=== PATIENT | female | born 1970 ===

== ENCOUNTER → 2023-04-14 | Outpatient (CLI) | payer BC ==
[2023-04-14 12:32] LABS: Alanine Aminotransferase 31 U/L (7-40); Albumin 4.4 g/dL (3.2-4.8); Alkaline Phosphatase 55 U/L (46-116); Anion Gap 4.8 (5-15); Aspartate Aminotransferase 21 U/L (13-40); BUN/Creatinine Ratio 21.1 (10.0-20.0); Blood Urea Nitrogen 16 mg/dL (9-23); Calcium 8.7 mg/dL (8.5-10.1); Carbon Dioxide 26.2 mmol/L (20-30); Chloride 103 mmol/L (98-107); Glucose 203 mg/dL (74-106); LDL Cholesterol 92 mg/dL (< 100); Potassium 4.4 mmol/L (3.5-5.1); Sodium 134 mmol/L (136-145); Triglycerides 212 mg/dL (< 150)
[2023-04-14 12:33] LABS: Bilirubin, Total 0.5 mg/dL (0.2-1.0); Cholesterol 141 mg/dL (< 200); Creatine Kinase IFCC 167 U/L (34-145); HDL Cholesterol 33 mg/dL (40-59); Total Protein 6.9 g/dL (5.7-8.2)
[2023-04-15 08:06] LABS: Estradiol 92.5 pg/mL (.); Thyroxine (T4) 6.1 ug/dL (4.5-12.0)
== END | disposition home or self-care (01) ==
LOC: LAB 11:34
PROVIDERS: ATTEND Internal Medicine
DX: E10.65 Type 1 diabetes mellitus with hyperglycemia (principal); E78.5 Hyperlipidemia, unspecified; N95.9 Unspecified menopausal and perimenopausal disorder; E55.9 Vitamin D deficiency, unspecified; N95.1 Menopausal and female climacteric states; Z79.891 Long term (current) use of opiate analgesic
CPT/HCPCS: 36415; 80053; 80061; 82043; 82306; 82550; 82670; 83036; 84402; 84403; 84436; 84443

== ENCOUNTER → 2024-08-26 | Outpatient (CLI) | payer BC ==
[2024-08-26 10:25] LABS: Urine Bacteria None Seen /hpf (None Seen)
[2024-08-26 11:59] LABS: Alanine Aminotransferase 27 U/L (7-40); Albumin 4.8 g/dL (3.2-4.8); Alkaline Phosphatase 54 U/L (46-116); Anion Gap 6 (5-15); Aspartate Aminotransferase 30 U/L (13-40); BUN/Creatinine Ratio 14.8 (10.0-20.0); Blood Urea Nitrogen 13 mg/dL (9-23); Calcium 9.8 mg/dL (8.7-10.4); Carbon Dioxide 30 mmol/L (20-31); Chloride 100 mmol/L (98-107); LDL Cholesterol 90 mg/dL (< 100); Potassium 4.4 mmol/L (3.5-5.1); Triglycerides 110 mg/dL (< 150)
[2024-08-26 12:00] LABS: Bilirubin, Total 0.4 mg/dL (0.2-1.0); Cholesterol 149 mg/dL (< 200); HDL Cholesterol 51 mg/dL (40-59); Total Protein 7.1 g/dL (5.7-8.2)
[2024-08-26 12:02] LABS: Free T3 2.82 pg/mL (2.3-4.2)
[2024-08-26 12:05] LABS: Free T4 (Free Thyroxine) 1.07 ng/dL (0.89-1.76)
[2024-08-26 12:10] LABS: Basophils # (auto) 0 10 ^3/uL (0-0.2); Basophils % (auto) 0.6 % (0.0-2.0); Eosinophils # (auto) 0.1 10 ^3/uL (0-0.8); Eosinophils % (auto) 3.1 % (0.0-7.0); Hematocrit 42.4 % (36.0-46.0); Hemoglobin 14.5 g/dL (12.2-16.2); Lymphocytes # (auto) 1.7 10 ^3/uL (0.4-5.4); Lymphocytes % (auto) 37.9 % (10.0-50.0); Mean Corpuscular Hgb Conc. 34.1 g/dL (32.0-36.0); Mean Corpuscular Volume 96.8 fL (80.0-100.0); Monocytes # (auto) 0.3 10 ^3/uL (0-1.3); Monocytes % (auto) 7.9 % (0.0-12.0); Neutrophils # (auto) 2.2 10 ^3/uL (1.6-8.6); Neutrophils % (auto) 50.5 % (37.0-80.0); Nucleated Red Blood Cells % 0.3 %; Platelet Count (auto) 187 10^3/uL (140-450); Red Blood Cells 4.38 10^6/uL (4.0-5.20); Red Cell Distribution Width 14.1 % (11.8-14.3); White Blood Cell 4.4 10^3/uL (4.4-10.8)
[2024-08-26 12:13] LABS: Creatine Kinase IFCC 220 U/L (34-145); Glucose 168 mg/dL (74-106); Sodium 136 mmol/L (136-145)
[2024-08-26 12:33] LABS: Urine Blood Negative /uL (Negative); Urine Clarity Clear (Clear); Urine Color Light-Yellow (Yellow); Urine Protein, UAD Negative (Negative); Urine Specific Gravity 1.007 (1.001-1.035); Urine Squamous Epithelial Cell None Seen /hpf (<5); Urine Urobilinogen Normal (Negative); Urine WBC 1 /HPF (0-5)
== END | disposition home or self-care (01) ==
LOC: LAB 10:06
PROVIDERS: ATTEND Internal Medicine
DX: Z00.00 Encounter for general adult medical examination without abnormal findings (principal); E10.69 Type 1 diabetes mellitus with other specified complication; E03.9 Hypothyroidism, unspecified; F11.20 Opioid dependence, uncomplicated; E66.9 Obesity, unspecified
CPT/HCPCS: 36415; 80053; 80061; 81001; 82043; 82306; 82550; 83036; 84439; 84443; 84481; 85025; 87086

== ENCOUNTER → 2025-01-06 | Outpatient (CLI) | payer BC ==
[2025-01-06 11:53] LABS: Alanine Aminotransferase 32 U/L (7-40); Albumin 4.8 g/dL (3.2-4.8); Alkaline Phosphatase 57 U/L (46-116); Anion Gap 6 (5-15); Aspartate Aminotransferase 23 U/L (13-40); BUN/Creatinine Ratio 12.5 (10.0-20.0); Blood Urea Nitrogen 12 mg/dL (9-23); Calcium 10.4 mg/dL (8.7-10.4); Carbon Dioxide 25 mmol/L (20-31); Chloride 106 mmol/L (98-107); Sodium 137 mmol/L (136-145); Total Protein 7.2 g/dL (5.7-8.2)
[2025-01-06 11:54] LABS: Bilirubin, Total 0.6 mg/dL (0.2-1.0)
[2025-01-06 11:58] LABS: Free T3 3.1 pg/mL (2.3-4.2)
[2025-01-06 11:59] LABS: Free T4 (Free Thyroxine) 1.4 ng/dL (0.89-1.76); Glucose 158 mg/dL (74-106); Potassium 5.3 mmol/L (3.5-5.1)
== END | disposition home or self-care (01) ==
LOC: LAB 11:09
PROVIDERS: ATTEND Internal Medicine
DX: E03.9 Hypothyroidism, unspecified (principal); R74.01 Elevation of levels of liver transaminase levels
CPT/HCPCS: 36415; 80053; 84439; 84443; 84481